=== PATIENT | female | born 1980 | race Caucasian/White ===

== ENCOUNTER 2023-09-28 12:02 | Emergency (ER) | payer SELFPAY ==
[2023-09-28 12:06] VITALS: BP 118/70; PULSE 89; RESP 20; TEMP 37.1; O2SAT 98
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
[2023-09-28 14:21] VITALS: BP 126/84; PULSE 88; RESP 16; TEMP 37.6; O2SAT 98
== END 2023-09-28 14:26 | disposition home or self-care (01) ==
PROVIDERS: Emergency Provider Emergency Medicine
DX: S42.022A Displaced fracture of shaft of left clavicle, initial encounter for closed fracture (principal); F17.210 Nicotine dependence, cigarettes, uncomplicated; V48.5XXA Car driver injured in noncollision transport accident in traffic accident, initial encounter
CPT/HCPCS: 99283; 71046; 73000; 73030

== ENCOUNTER 2023-10-02 11:49 | Outpatient (CLI) | payer SELFPAY ==
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
== END 2023-10-02 11:50 | disposition home or self-care (01) ==
LOC: DIORS 11:49
PROVIDERS: Visit Provider Student in an Organized Health Care Education/Training Program
DX: S42.022D Displaced fracture of shaft of left clavicle, subsequent encounter for fracture with routine healing (principal); X58.XXXD Exposure to other specified factors, subsequent encounter
CPT/HCPCS: 73000

== ENCOUNTER 2024-12-30 11:07 | Outpatient (CLI) | payer MEDICAID, SELFPAY ==
--- NOTE | 2024-12-30 11:22 | DI.RAD_ITS ---
Exam(s) XR HAND RT COMPLETE EXAM: XR HAND RT COMPLETE CLINICAL HISTORY: M79.641 Pain in RT hand, eval pathology. TECHNIQUE: 2D digital imaging was performed. COMPARISON: No exams were available for comparison FINDINGS: 3 views No evidence of fracture or dislocation nor radiopaque foreign bodies. Bone density normal. No osseo us lesions. No erosions. IMPRESSION: No acute osseous findings in the right hand. DATA REPOSITORY: RADIATION DOSE DELIVERED:
== END 2024-12-30 11:27 ==
PROVIDERS: Visit Provider Nurse Practitioner Family
DX: M79.641 Pain in right hand (principal)
CPT/HCPCS: 73130

== ENCOUNTER 2025-02-10 14:48 | Outpatient (CLI) | payer MEDICAID, SELFPAY ==
[2025-02-10 14:37] LABS: HCT 37.2 % (36.0-46.0); HGB 12.8 g/dL (11.2-15.7); MCH 33.4 pg (27.0-33.0); MCHC 34.4 % (32.0-36.0); MCV 97 fL (80-95); MPV 8.6 fL (8.0-11.0); Platelet Count 210 10^3/uL (130-400); RBC 3.83 10^6/uL (3.93-5.22); RDW 11.9 % (11.7-14.6); RDW-SD 42.4 fL; WBC 4.95 10^3/uL (4.4-10.8)
[2025-02-10 14:51] LABS: Hemoglobin A1C 5.2 % (<5.7)
[2025-02-10 15:11] LABS: ALT 13 U/L (14-59); AST 16 U/L (15-37); Albumin 3.8 g/dL (3.4-5.0); Alkaline Phosphatase 38 U/L (46-116); BUN 13 mg/dL (7-18); Bilirubin, Total 0.5 mg/dL (0.2-1.0); CREATININE 0.7 mg/dL (0.55-1.02); Calcium 8.9 mg/dL (8.5-10.1); Calculated LDL 126 mg/dL (<100); Chloride 103 mmol/L (98-107); Cholesterol 215 mg/dL (<200); Estimated GFR 109.98 (mL/min/1.73m2); Glucose 89 mg/dL (74-106); HDL Cholesterol 76 mg/dL (>or=50); Potassium 3.6 mmol/L (3.5-5.1); Sodium 139 mmol/L (136-145); TSH (W/Ref FT4) 1.67 uIU/mL (0.36-3.74); Total Protein 7.1 g/dL (6.4-8.2); Triglyceride 67 mg/dL (<150)
[2025-02-11 10:03] LABS: HIV-1/2 Ag & Ab Screen Negative (Negative)
[2025-02-11 10:13] LABS: Hepatitis C Ab w Rflx HCV PCR Negative (Negative)
[2025-02-11 11:17] LABS: HSV Type 1 Ab, IgG Positive (Negative); HSV Type 2 Ab, IgG Positive (Negative)
[2025-02-11 11:39] LABS: Syphilis Serology (RPR) Negative (Negative)
[2025-02-11 12:32] LABS: Chlamydia Result Negative (Negative); GC Result Negative (Negative)
== END 2025-02-10 14:49 | disposition home or self-care (01) ==
LOC: LBO 14:49
PROVIDERS: PCP Nurse Practitioner Family; Visit Provider Nurse Practitioner Family
DX: Z00.00 Encounter for general adult medical examination without abnormal findings (principal); Z20.2 Contact with and (suspected) exposure to infections with a predominantly sexual mode of transmission
CPT/HCPCS: 36415; 80053; 80061; 85027; 86803; 87389; 87491; 87591; 83036; 84443; 86592; 86695; 86696

== ENCOUNTER 2025-02-24 02:36 | Outpatient (CLI) | payer MEDICAID, SELFPAY ==
--- NOTE | 2025-02-24 07:30 | DI.MAMMO_ITS ---
Exam(s) MAMMO SCREENING EXAM: MAMMO SCREENING CLINICAL HISTORY: screening,Z12.39 TECHNIQUE: Mammograms were interpreted according to the usual protocol including computer analysis with CAD system, tomosynthesis and C-view imaging. COMPARISON: None. Baseline examination. FINDINGS: The breasts are composed of heterogeneously dense fibroglandular densities, Breast Density category C. No suspicious masses or suspicious microcalcifications are seen. No skin thickening or abnormal axillary lymph nodes are seen. IMPRESSION: BI-RADS Category 1, Negative mammogram. Yearly screening mammography is recommended. Breast Density: Category C - The breasts are heterogeneously dense, which may obscure small masses. Breast density Category C or D implies that the patient has dense breast tissue. Dense breast tissue can make it harder to find cancer on a mammogram. Dense breast tissue is also associated with an increased risk of breast cancer. This information about the result of the mammogram report was provided to the patient to raise their awareness. Use this report when you speak with the patient about their risks for breast cancer, which includes their family history. At that time, you may recommend additional screening tests (Ultrasound or MRI) as these tests may add significant information. A negative radiographic report should not delay biopsy if a dominant or clinically suspicious mass is present. Up to ten percent of cancers are not identified on mammography. A negative report may reinforce clinical impression. Adenosis and dense breasts may obscure an underlying neoplasm. False positive reports average 6 to 10%.
== END 2025-02-24 02:56 ==
PROVIDERS: PCP Nurse Practitioner Family; Visit Provider Nurse Practitioner Family
DX: Z12.31 Encounter for screening mammogram for malignant neoplasm of breast (principal); R92.333 Mammographic heterogeneous density, bilateral breasts
CPT/HCPCS: 77063; 77067